=== PATIENT | male | born 1990 | race Caucasian/White ===

== ENCOUNTER 2019-10-14 16:52 | Emergency (ER) | payer OTHER, SELFPAY ==
[2019-10-14 17:12] VITALS: BP 162/90; PULSE 94; RESP 16; O2SAT 96; BMI 37.1
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
--- NOTE | 2019-10-14 17:29 | HMH.EDGENADL ---
ED Disposition Clinical Impression: Facial laceration Qualifiers: Encounter type: initial encounter Qualified Code(s): S01.81XA - Laceration without foreign body of other part of head, initial encounter Lip laceration Qualifiers: Encounter type: initial encounter Qualified Code(s): S01.511A - Laceration without foreign body of lip, initial encounter Nasal bone fracture Qualifiers: Encounter type: initial encounter Fracture type: closed Qualified Code(s): S02.2XXA - Fracture of nasal bones, initial encounter for closed fracture Disposition: Home, Self-Care Condition on Discharge: Good Instructions: DI for Nose Fracture, DI for Laceration Repair Additional Instructions: You have been evaluated for facial lacerations and nasal bone trauma. You likely have a nondisplaced fracture with deviation of the septum to the left. Sutures are absorbable. Please have a wound check in 7 to 10 days to have any remaining sutures removed. Keep areas clean and dry. Take Tylenol and ibuprofen. Return to the emergency department if you have any new or worsening symptoms. Referrals: PCP,No [Primary Care Provider] - Time of Disposition: 18:07 - Critical Care Critical Care Time: No Attestation: On 10/14/19, the high probability of a clinically significant, sudden or life threatening deterioration of the following system(s) required my full and direct attention, intervention and personal management. The time I documented below is in addition to time spent performing reported procedures but includes the following listed in this critical care notation. Medical Decision Making - Medical Records Medical records reviewed: Yes: I reviewed the patient's medical records. - Robert Inquiry Pt receiving controlled substance: No Vital Signs: 10/14/19 17:12 10/14/19 18:15 Temperature 98.5 F Temperature Source Oral Pulse Rate 87 Pulse Rate [Right] 94 H Respiratory Rate 16 16 Blood Pressure 140/65 Blood Pressure [Right Arm] 162/90 H Blood Pressure Mean [Right Arm] 114 Blood Pressure Source Automatic Cuff Blood Pressure Source [Right Arm] Automatic Cuff Blood Pressure Position Sitting Blood Pressure Position [Right Arm] Sitting 02 Sat by Pulse Oximetry 96 Oxygen Delivery Method Room Air Room Air Orders (Tests/Meds): ED MEDICATIONS Discontinued Medications Generic Name Dose Route Start Last Admin Trade Name Freq PRN Reason Stop Dose Admin Lidocaine HCl 10 ml 10/14/19 17:29 10/14/19 18:14 Lidocaine 1% 10ml Mdv SQ 10/14/19 17:30 10 ml ONCE ONE Administration Ondansetron HCl 4 mg 10/14/19 17:53 10/14/19 18:12 Zofran 4mg Odt SL 10/14/19 17:54 4 mg ONCE ONE Administration Tetanus/Reduced Diphtheria/Acell Pertussis 0.5 ml 10/14/19 17:30 10/14/19 18:13 Adacel Tdap 0.5ml Syringe IM 10/14/19 17:31 0.5 ml .ONCE ONE Administration ORDERS Category Date Time Status XR nasal bones min 3V Stat Exams 10/14/19 17:17 Taken Medical Decision Narrative: In summary this is a 29-year-old male presenting to the emergency department with lacerations to his lip and injuries to his face. Patient is stable on arrival. Bleeding controlled. Only bony tenderness is over the nasal bridge. No tenderness over the maxillary or mandibular sinuses. No jaw pain. Plan to obtain plain film x-ray to assess for nasal bone fractures. Lacerations irrigated and repaired at bedside. Please see separate notes. Tetanus updated. Procedure well-tolerated. Nasal bone x-rays show slight bowing of the nasal septum to the left. No obvious fracture. No displaced fractures. Patient counseled that he should take Tylenol and ibuprofen for pain. Sutures are absorbable but he should have a wound check in 7 to 10 days and have any remaining sutures removed at that time. General Adult HPI - General Chief complaint: Wound/Laceration Stated complaint: AO 0812@1430 in n mouth lac Time Seen by Provider: 10/14/19 17:
[2019-10-14 18:15] VITALS: BP 140/65; PULSE 87; RESP 16; TEMP 36.9; O2SAT 98
== END 2019-10-14 18:19 | disposition home or self-care (01) ==
PROVIDERS: Emergency Provider Emergency Medicine
DX: S01.81XA Laceration without foreign body of other part of head, initial encounter (principal); S01.511A Laceration without foreign body of lip, initial encounter; S02.2XXA Fracture of nasal bones, initial encounter for closed fracture; W22.8XXA Striking against or struck by other objects, initial encounter; Y92.89 Other specified places as the place of occurrence of the external cause; Z23 Encounter for immunization
CPT/HCPCS: 12013; 70160; 90471; 90715; 99282

== ENCOUNTER 2020-08-17 15:04 | Emergency (ER) | payer SELFPAY ==
[2020-08-17 15:14] VITALS: BP 144/87; PULSE 75; RESP 16; TEMP 36.7; O2SAT 98; BMI 32.3
--- NOTE | 2020-08-17 15:27 | XR_ITS ---
PROCEDURE: XR HAND LT MIN 3V CLINICAL INDICATION: swollen COMPARISON: No exams were available for comparison FINDINGS: No fracture or dislocation. No lytic or blastic change. There is normal mineralization. The joint spaces are well-preserved. No significant degenerative/arthritic changes. No erosive changes evident. Other findings:Mild soft tissue swelling. IMPRESSION: Mild soft tissue swelling with no acute fracture or dislocation. Dictated by: Sandro Sierra MD 08/17/2020 16:01 Sandro Sierra MD in [place] 08/17/2020 16:01
--- NOTE | 2020-08-17 15:29 | HMH.EDUTC ---
[facility] [place] Clinical Impression: Cellulitis Qualifiers: Site of cellulitis: unspecified site Qualified Code(s): L03.90 - Cellulitis, unspecified Disposition: Home, Self-Care Condition on Discharge: Good Instructions: Cellulitis, DI for Cellulitis -- Adult, Trimethoprim/Sulfamethoxazole (Alternative Therapy), Cephalexin Additional Instructions: *Start antibiotic(s) immediately and be sure to take as ordered for the FULL length of time although you may be feeling better or start to see improvement in the next 24-48 hours *Monitor closely. Outlined redness so that you can monitor easier. Follow up immediately for new or worsening symptoms including but not limited to redness, swelling, streaking from site fever or chills. *Warm compress 15 minutes 3-4 times day *Never squeeze or pop these on your own. Seek immediate medical attention next time this occurs *Monitor Temp. Tylenol every 4 hours as needed and ibuprofen every 6 hours as needed (as long as your primary care doctor has told you that it is ok to take both. For fever, aches, pain. ER if no less that 101 despite Tylenol and ibuprofen Follow up with your family doctor/primary care physician in the next 48-72 hours if no improvement Prescriptions: Sulfamethoxazole/Trimethoprim [Bactrim DS tablet] 1 each PO BID 5 Days #10 tab Transmission Status: Pending to [facility] cephALEXin [cephALEXin 500mg capsule*] 500 mg PO Q6H 5 Days #20 cap Transmission Status: Pending to [facility] Referrals: Provider,Referral, [Primary Care Provider] - As needed Time of Disposition: 16:11 Medical Decision Making - Robert Inquiry Pt receiving controlled substance: No Robert was queried for this patient: No Vital Signs: 08/17/20 15:14 Temperature 98.1 F Temperature Source Oral Pulse Rate [Right] 75 Respiratory Rate 16 Blood Pressure [Right Arm] 144/87 H Blood Pressure Mean [Right Arm] 106 Blood Pressure Source [Right Arm] Automatic Cuff Blood Pressure Position [Right Arm] Sitting 02 Sat by Pulse Oximetry 98 Orders (Tests/Meds): ORDERS Category Date Time Status Hand XR left minimum 3 views [XR hand LT min 3V] Stat Exams 08/17/20 15:27 Taken - Radiology Data #1 Image(s): Hand Image Reviewed: Yes I have reviewed radiologist's interpretation Mild soft tissue swelling with no acute fracture or dislocation. [facility] [place] HPI - General Stated complaint: infection in left hand pinky Time Seen by Provider: 08/17/20 15:29 Mode of Arrival: Ambulatory Source of Information: Patient Limitations: No Limitations Description of Symptoms (Recalled from Triage Doc. by RN): pt cut his L pinky about two months ago. now recently his has drained infection out by the first knuckly. his wrist is swollen and warm. HEENT Symptoms (Recalled from RN notes): No Resp Symptoms (Recalled from RN notes): No Skin Symptoms (Recalled from RN notes): No MS Symptoms (Recalled from RN notes): Yes (L pinky and wrist are swollen and painful) Functional Status (Recalled from RN notes): na - History of Present Illness Provider Complaint: Patient state that he was working on car a couple months ago and hit his knuckle area on his left hand State that since then it has got red and swelled up several times States that his has opened it several times and drained it but then it comes back States that now swelling has extended down into his hand and wrist area and he thought he may need some antibiotics due to the swelling and redness No drainage at this time - Related Data Previous Rx's Medication Instructions Recorded Sulfamethoxazole/Trimethoprim 1 each PO BID 5 Days #10 tab 08/17/20 [Bactrim DS tablet] cephALEXin [cephALEXin 500mg 500 mg PO Q6H 5 Days #20 cap 08/17/20 capsule*] Allergies Allergy/AdvReac Type Severity Reaction Status Date / Time No Known Allergies Allergy Verified 08/17/20 15:11 - Worker's Comp Is this a Worker's Comp case?: No [facility]
[2020-08-17 16:31] VITALS: BP 149/87; PULSE 75; RESP 16; TEMP 36.7
== END 2020-08-17 16:31 | disposition home or self-care (01) ==
PROVIDERS: Emergency Provider Nurse Practitioner
DX: L03.114 Cellulitis of left upper limb (principal)
CPT/HCPCS: 73130; 99202; G0463

== ENCOUNTER 2020-09-17 09:17 | Emergency (ER) | payer SELFPAY ==
[2020-09-17 09:37] VITALS: BP 138/87; PULSE 74; RESP 18; TEMP 36.7; O2SAT 99; BMI 32.3
--- NOTE | 2020-09-17 09:44 | HMH.EDUTC ---
[facility] [place] Disposition Clinical Impression: Diarrhea Qualifiers: Diarrhea type: unspecified type Qualified Code(s): R19.7 - Diarrhea, unspecified Disposition: Home, Self-Care Condition on Discharge: Good Instructions: Diarrhea Additional Instructions: Monitor temperature. Seek treatment if fever develops. Follow-up immediately if new or worse symptoms worsen or no noticeable improvement over 48 hours. Increase fluids such as water, Gatorade, Powerade, juice or Pedialyte with limited formula/dietary in children No food is okay as long as you are drinking. Once ready to eat start bland such as bananas, rice, applesauce, toast. Contagious until no diarrhea, vomiting, fever times 48 hours without medication Avoid antidiarrheals unless told otherwise. Best to let the virus run its course. Follow-up immediately for new or worsening symptoms or no noticeable improvement over the next 48 hours. Referrals: Provider,Referral, MD [Primary Care Provider] - Time of Disposition: 11:40 Medical Decision Making - Robert Inquiry Pt receiving controlled substance: No Vital Signs: 09/17/20 09:37 Temperature 98.1 F Temperature Source Oral Pulse Rate [Left] 74 Respiratory Rate 18 Blood Pressure [Right Arm] 138/87 Blood Pressure Mean [Right Arm] 104 02 Sat by Pulse Oximetry 99 - Lab Data Lab Results 09/17/20 10:48: WBC 9.1, RBC 4.81, Hgb 14.5, Hct 41.3 L, MCV 85.8, MCH 30.1, MCHC 35.1, RDW 13.1, Plt Count 247, MPV 7.7, Neut % (Auto) 64.5, Lymph % (Auto) 29.0, [place] % (Auto) 5.2, Eos % (Auto) 1.0, Baso % (Auto) 0.4, Neut # (Auto) 5.8, Lymph # (Auto) 2.6, [place] # (Auto) 0.5, Eos # (Auto) 0.1, Baso # (Auto) 0.0 09/17/20 10:48: Sodium 140, Potassium 4.3, Chloride 103, Carbon Dioxide 26, Anion Gap 15.3 H, BUN 16, Creatinine 1.00, Estimated Creat Clear 168, Estimated GFR 87, Est GFR ( Amer) 105, Glucose 89, Calcium 9.1 Result diagrams: 09/17/20 10:48 09/17/20 10:48 Orders (Tests/Meds): ORDERS Category Date Time Status Diarrhea 23 Panel, PCR Stat Lab 09/17/20 10:09 Received Helicobacter pylori (Screen) Stat Micro 09/17/20 09:50 Uncollected [facility] [place] HPI - General Chief complaint: Urgent [facility] Stated complaint: diarrhea/a week Time Seen by Provider: 09/17/20 09:45 Mode of Arrival: Ambulatory Source of Information: Patient Limitations: No Limitations Description of Symptoms (Recalled from Triage Doc. by RN): pt sates he has had diarhea for over a week. he has tried all otc remedies without any relief. pt c/o LLQ pain and very minimal urination, however, he says his stool straight liquid. HEENT Symptoms (Recalled from RN notes): No Resp Symptoms (Recalled from RN notes): No Skin Symptoms (Recalled from RN notes): No MS Symptoms (Recalled from RN notes): No Functional Status (Recalled from RN notes): na - History of Present Illness Provider Complaint: 30 yr old male pressents for diarrhea for 1 week. pt sates he has had diarhea for over a week. he has tried all otc remedies without any relief. pt c/o LLQ pain and very minimal urination. Pt states no tenderness but feels tender from the inside. denies fever,nausea,vomiting. no ill contacts, states when he belches it smells bad - Related Data Previous Rx's Medication Instructions Recorded Sulfamethoxazole/Trimethoprim 1 each PO BID 5 Days #10 tab 08/17/20 [Bactrim DS tablet] cephALEXin [cephALEXin 500mg 500 mg PO Q6H 5 Days #20 cap 08/17/20 capsule*] Allergies Allergy/AdvReac Type Severity Reaction Status Date / Time No Known Allergies Allergy Verified 09/17/20 09:43 - Worker's Comp Is this a Worker's Comp case?: No [facility] History - Hepatitis A Screen Drug use history?: No High risk sexual behaviors?: No History of sexually transmitted infection?: No Currently employed?: No Childcare worker?: No Do you have indoor plumbing?: Yes Do you have electricity?: Yes Attestation statement:: This patient has been screened for Hepatitis A risk
[2020-09-17 11:13] LABS: Adenovirus F 40/41, stool Not Detected (NotDetected); Astrovirus Not Detected (NotDetected); Campylobacter Not Detected (NotDetected); Clostridium Difficile A/B, PCR Not Detected (NotDetected); Cryptosporidium Not Detected (NotDetected); Cyclospora Cayetanesis Not Detected (NotDetected); Entamoeba histolytica Not Detected (NotDetected); Enteroaggregative E coli Not Detected (NotDetected); Enteropathogenic E coli Not Detected (NotDetected); Enterotoxigenic E coli Not Detected (NotDetected); Giardia lamblia Not Detected (NotDetected); Norovirus Not Detected (NotDetected); Plesimonas Shigalloides, PCR Not Detected (NotDetected); Rotavirus A Not Detected (NotDetected); Salmonella, PCR Not Detected (NotDetected); Sapovirus Not Detected (NotDetected); Shiga-like toxin E coli Not Detected (NotDetected); Shigella Enterovasive E coli Not Detected (NotDetected); Vibrio Cholerae Not Detected (NotDetected); Vibrio, PCR Not Detected (NotDetected); Yersinia Entercolitica, PCR Not Detected (NotDetected)
[2020-09-17 11:23] LABS: Basophils % 0.4 % (0.1-2.0); Eosinophils # 0.1 K/mm3 (0.0-0.4); Hematocrit 41.3 % (42.0-52.0); Hemoglobin 14.5 g/dL (14.1-18.0); Lymphocytes # 2.6 K/mm3 (0.7-4.5); Mean Corpuscular HGB Conc 35.1 g/dL (31.8-35.4); Mean Corpuscular Hemoglobin 30.1 pg (27.0-31.2); Mean Corpuscular Volume 85.8 fl (80-94); Mean Platelet Volume 7.7 fl (7.4-10.4); Monocytes # 0.5 K/mm3 (0.1-1.0); Monocytes % 5.2 % (1.7-9.3); Neutrophils # 5.8 K/mm3 (1.8-7.8); Neutrophils % 64.5 % (37.0-80.0); Platelet Count 247 K/mm3 (142-424); Red Blood Count 4.81 M/mm3 (4.60-6.20); Red Cell Distribution Width 13.1 % (11.5-17.5); White Blood Count 9.1 K/mm3 (4.8-10.8)
[2020-09-17 11:31] LABS: Anion Gap 15.3 mEq/L (5-15); Blood Urea Nitrogen 16 mg/dl (9-20); Calcium 9.1 mg/dl (8.4-10.2); Carbon Dioxide 26 mmol/L (22.0-30.0); Chloride 103 mmol/L (98-107); Creatinine Clearance Estimated 168 mL/min (50-200); Estimated Glomerular Filt Rate 87 ml/min (>60); GFR (African American) 105 ML/MIN (>60); Glucose 89 mg/dl (74-100); Potassium 4.3 mmoL/L (3.5-5.1); Sodium 140 mmol/L (136-145)
[2020-09-17 11:48] VITALS: BP 139/85; PULSE 79; RESP 18; TEMP 36.6
[2020-09-20 15:54] LABS: H. pylori Breath Test Positive (Negative)
== END 2020-09-17 12:21 | disposition home or self-care (01) ==
PROVIDERS: Emergency Provider Nurse Practitioner Family
DX: R10.32 Left lower quadrant pain (principal); R19.7 Diarrhea, unspecified
CPT/HCPCS: 80048; 83013; 85025; 87507; 99202; G0463